=== PATIENT | female | born 1985 | race Caucasian/White ===

== ENCOUNTER → 2020-02-15 | Outpatient (CLI) | payer OTHER, SELFPAY ==
[2020-02-15 08:41] VITALS: BMI 31.2
[2020-02-15 14:18] LABS: Mucous, Urine 0 SEEN /hpf (<or=2+); Red Blood Cells-Urine 0 SEEN /hpf (0-5)
[2020-02-15 14:32] LABS: Color, Urine Yellow (Yellow); Glucose, Dipstick Normal (Normal); Ketone-Dipstick Negative (Negative); Leukocyte Esterase-Dipstick 500 /ul (Negative); Nitrite-Dipstick Negative (Negative); Occult Blood-Urine 10 /ul (Negative); Protein-Dipstick 15 mg/dl (Negative); Specific Gravity, Urine 1.015 (1.002-1.030); Urine Bilirubin Dipstick Negative (Negative); Urine Clarity Clear (Clear); Urine Urobilinogen Normal (Normal); Urine pH 6.5 (5.0 - 8.0)
[2020-02-15 14:49] LABS: Bacteria 2+ /hpf (None Seen); Squamous Epithelial Cells - UA 5-10 SEEN /hpf (5-10); White Blood Cells 5-10 SEEN /hpf (0-5)
== END | disposition home or self-care (01) ==
PROVIDERS: PCP Family Medicine; Visit Provider Physician Assistant Surgical
DX: R10.9 Unspecified abdominal pain (principal)
CPT/HCPCS: 81001; 87086; 87088

== ENCOUNTER 2024-10-22 11:51 | Emergency (ER) | payer OTHER, SELFPAY ==
[2024-10-22 11:52] VITALS: BP 114/80; PULSE 90; RESP 17; TEMP 36.8; O2SAT 98; BMI 29.5
--- NOTE | 2024-10-22 12:34 | EX.ED.DYSGE1 ---
HPI History of Present Illness Chief Complaint: Flank Pain Narrative Narrative: 39-year-old female past medical history of epilepsy presents with left flank pain radiating to the front that began at 1230 this morning, approximately 12 hours ago. She states it woke her from sleep. It was sudden onset. It is both sharp and stabbing and sometimes dull and achy. She states is in her left low back and radiates towards the front. She noticed that her urine was darker today, but not bloody. She describes to triage that she is having burning with urination as well. No fevers or chills but nausea, but no vomiting, no problems with bowel movements, no diarrhea. [facility] Medical History (Updated 10/22/24 @ 14:19 by Harshad Tapia MD) Seizures Hay fever Home Medications ?Medication ?Instructions ?Recorded ?Last Taken ?Type lamotrigine 200 mg tablet 300 - 400 mg PO BID 06/05/19 10/22/24 History levetiracetam 500 mg tablet 2,000 mg PO BID 06/05/19 10/22/24 History zonisamide 100 mg capsule 200 mg PO BID 06/05/19 10/22/24 History acetaminophen 500 mg capsule 500 mg PO Q6H PRN fever or pain 10/22/24 10/22/24 History methenamine-sodium salicylate 162 2 tab PO DAILY PRN PAIN RELIEF 10/22/24 10/22/24 History mg-162.5 mg tablet (AZO Urinary Tract Defense) Allergy/AdvReac Type Severity Reaction Status Date / Time No Known Allergies Allergy Verified 09/30/24 09:24 Surgical History History of appendectomy Social History Smoking Status: Never smoker alcohol intake: never substance use type: does not use ROS ROS ED ROS Narrative Review of systems positive for left flank pain, dark urine, positive dysuria. Positive nausea but no vomiting, no problems with bowel movements. No fevers or chills. No exacerbating or alleviating factors. Unsure of last menstrual period. EXAM Physical Exam Narrative Exam Narrative: Afebrile. Vital signs noted. Nontoxic-appearing. Cardiovascular examination feels regular rate and rhythm. Lungs are clear to auscultation bilaterally. Abdomen is soft, nontender, with positive bowel sounds. No guarding or rebound. Questionable CVA tenderness left. Const Vital Signs: 10/22/24 11:52 Temperature 98.3 F Temperature Source Oral Pulse Rate 90 Respiratory Rate 17 Blood Pressure 114/80 Blood Pressure Mean 91 Pulse Ox 98 Oxygen Delivery Method Room Air MDM MDM MDM Narrative Medical decision making narrative: Differential diagnosis includes but not limited to ureterolithiasis/ureteral colic versus pyelonephritis versus diverticulitis versus ectopic . History and physical does not support the latter 2 diagnoses. Comprehensive workup was pursued. In discussion with the patient and her , they prefer to wait until negative test for Toradol and declined the morphine/narcotic pain medication. I reviewed her laboratory work and she has slightly elevated white count of 11.7 which I think is nonspecific with hemoglobin normal at 13.9, hematocrit 42.1, platelet count 316. CO2 slightly low at 18.9 which I think is nonspecific, normal glucose of 97, anion gap of 12. Urine test is negative. Urine WBC count 5-10 with RBCs 25-50, there is 0 bacteria. 15 ketones. I do not feel antibiotics are indicated. I reviewed the radiology report of the CT of the abdomen and pelvis without contrast. There is a 3.6 mm stone in the bladder and hydronephrosis and hydroureter with mild stranding consistent with recently passed ureteral stone. Upon repeat examination at approximately 1420, she is resting comfortably, and states she is pain-free. She can take [id number] ibuprofen as needed as she states she is sensitive to medications. I feel she can be discharged to follow-up with urology as needed. Return instructions to the emergency department were reviewed. Disposition is discharged home in stable condition. History & Record Review Discussion w/independent historian: Patient and Family () Lab Data Attestation: I reviewed the patient's lab results. Labs: Laboratory Results - last 24 hr 10/22/24 12:16 WBC 11.7 H RBC 4.60 Hgb 13.9 Hct 42.1 MCV 91.5 MCH 30.2 MCHC 33.0 RDW Std Deviation 43.9 RDW Coeff of Krysta 13.0 Plt Count 316 MPV 8.8 Immature Gran % (Auto) 0.300 Neut % (Auto) 73.2 H Lymph % (Auto) 17.9 L [place] % (Auto) 7.8 Eos % (Auto) 0.4 Baso % (Auto) 0.4 Absolute Neuts (auto) 8.5 H Absolute Lymphs (auto) 2.09 Nucleated RBC % 0 Sodium 136 Potassium 3.8 Chloride 106 Carbon Dioxide 18.9 L Anion Gap 12 BUN 14 Creatinine 1.16 Estim Creat Clear Calc 55.67 Est GFR (MDRD) Non-Af 61 BUN/Creatinine Ratio 12.1 Glucose 97 Calcium 9.0 Urine Color Yellow Urine Clarity Cloudy Urine pH 6.0 Ur Specific [place] 1.010 Urine Protein 30 H Urine Glucose (UA) Normal Urine Ketones 15 H Urine Occult Blood 250 H Urine Nitrite Negative Urine Bilirubin Negative Urine Urobilinogen Normal Ur Leukocyte Esterase 100 H Urine RBC 25-50 SEEN Urine WBC 5-10 SEEN Ur Squamous Epith Cells 0-5 SEEN Urine Bacteria 0 SEEN Urine Mucus 0 SEEN Urine Test Negative Radiography Diagnostic Testing: Clinical Impression(s) from Imaging Studies Abdomen/Pelvis CT 10/22/24 13:18 IMPRESSION: Findings suggestive of recently passed left ureteral calculus. Left perinephric stranding and engorgement of the left kidney. Tiny nonobstructive intrarenal calculi. Reading Location: [facility]- Discharge Plan Triage Chief Complaint: Flank Pain ED Provider: Harshad Tapia Dx/Rx/DC Orders Clinical Impression: Ureteral stone with hydronephrosis, Left flank pain Instructions: ED Kidney Stone, Passed Prescriptions: No Action zonisamide 100 mg capsule 200 mg PO BID lamotrigine 200 mg tablet 300 - 400 mg PO BID Rx Instructions: PT TAKES 1.5 TAB IN MORNING AND 2 TABS IN EVENING levetiracetam 500 mg tablet 2,000 mg PO BID acetaminophen 500 mg capsule 500 mg PO Q6H PRN (Reason: fever or pain) AZO Urinary Tract Defense 162-162.5 mg tablet 2 tab PO DAILY PRN (Reason: PAIN RELIEF) Activity Restrictions/Additional Instructions: Return with fever, increased pain, new or worsening symptoms. Otherwise, take ibuprofen as directed for pain. Follow-up with Dr. Wen as needed. Print Language: Kiswahili Disposition Disposition: Home, Self Care
[2024-10-22 12:42] LABS: Bacteria 0 SEEN /hpf (None Seen); Mucous, Urine 0 SEEN /hpf (<or=2+)
[2024-10-22 12:44] LABS: Absolute Lymphocyte Count 2.09 X10^3/uL (0.83-4.51); Absolute Neutrophil Count 8.5 X10^3/uL (2.0-7.7); Basophil# 0.05 X10^3/uL; Basophil% 0.4 % (0-1); Color, Urine Yellow (Yellow); Eosinophil# 0.05 X10^3/uL; Eosinophils% 0.4 % (0-5); Glucose, Dipstick Normal (Normal); Hematocrit 42.1 % (37-47); Hemoglobin 13.9 g/dL (12.0-15.0); Ketone-Dipstick 15 mg/dl (Negative); Leukocyte Esterase-Dipstick 100 /ul (Negative); Lymphocyte # 2.09 X10^3/ul (0.83-4.51); Lymphocyte % 17.9 % (19-41); Mean Corpuscular Hgb 30.2 pg (27.0-32.0); Mean Corpuscular Volume 91.5 fL (81-99); Mean Platelet Vol. 8.8 fl (6.2-12.0); Monocyte# 0.91 X10^3/uL; Monocyte% 7.8 % (0-10); NRBC Flagged by Analyzer 0 % (0-5); Neutrophil # 8.54 X10^3/uL (2.7-7.7); Neutrophil % 73.2 % (47-70); Nitrite-Dipstick Negative (Negative); Occult Blood-Urine 250 /ul (Negative); Platelet Count 316 K/mm3 (150-450); Protein-Dipstick 30 mg/dl (Negative); RBC Distribution Width SD 43.9 fl (35.1-43.9); Urine Bilirubin Dipstick Negative (Negative); Urine Clarity Cloudy (Clear); Urine Urobilinogen Normal (Normal); White Blood Count 11.7 K/mm3 (4.4-11.0)
[2024-10-22 12:54] LABS: Red Blood Cells-Urine 25-50 SEEN /hpf (0-5); Squamous Epithelial Cells - UA 0-5 SEEN /hpf (5-10)
[2024-10-22 12:55] LABS: Internal QC Validated? YES +Cl - CLEAR BKGD; Pregnancy, Urine Negative Negative; White Blood Cells 5-10 SEEN /hpf (0-5)
[2024-10-22] MEDS: 0.9% Normal Saline (1000mL) 1,000 ML 250 ML IV (13:03)
[2024-10-22 13:08] LABS: Anion Gap 12 (5-15); BUN 14 mg/dL (4-19); BUN/Creat Ratio 12.1 RATIO (10-20); Carbon Dioxide 18.9 mmol/L (21.0-32.0); Chloride 106 mmol/L (98-108); Creatinine, Serum 1.16 mg/dL (0.70-1.20); EST Glomerular Filtration Rate 61 (>60); Estimated Creatinine Clearance 55.67 ml/min (50-250); Glucose 97 mg/dL (70-99); Potassium 3.8 mmol/L (3.3-5.1); Sodium Level 136 mmol/L (133-145)
--- NOTE | 2024-10-22 13:18 | CT_ITS ---
PROCEDURE: ABDOMEN/PELVIS WITHOUT CONT 10/22/2024 REASON FOR EXAM: KIDNEY STONE Left-sided abdominal pain with nausea and diarrhea. TECHNIQUE: ABDOMEN/PELVIS WITHOUT CONT Noncontrast technique limits evaluation of the abdominal and pelvic viscera. Coronal and Sagittal reconstruction series were provided. One or more dose reduction techniques were used (e.g., Automated exposure control, adjustment of the mA and/or kV according to patient size, use of iterative reconstruction technique). Dose report: CTDI L volume: 808 mGy. DLP: 410.37 ORAL CONTRAST TYPE: None. COMPARISON: None FINDINGS: Lung bases: Unremarkable. Liver: Normal size. No obvious mass. Gallbladder: Unremarkable Spleen: Normal size. Pancreas: Normal size. No surrounding inflammation. Adrenals: Unremarkable Kidneys: There is engorgement of the left kidney. Left perinephric stranding. Mild degree of left hydronephrosis and left hydroureter. There is a 3.6 mm calculus at the base of the bladder on the left side. This is suggestive of a recently passed left ureteral calculus. Tiny bilateral nonobstructive intrarenal calculi. Bladder: Calculus seen at the left base of the bladder. Reproductive Organs: Normal uterine size and contour. Ovaries are unremarkable. Bowel: Unremarkable Appendix: Status post appendectomy. Lymph nodes: Unremarkable. Vasculature: The abdominal aorta and IVC contours are normal. Noncontrast technique limits evaluation. Peritoneum / Retroperitoneum: Bones: Unremarkable CT/Abdomen/Pelvis without Cont IMPRESSION: Findings suggestive of recently passed left ureteral calculus. Left perinephri c stranding and engorgement of the left kidney. Tiny nonobstructive intrarenal calculi. Reading Location: [place] [id number]
[2024-10-22] MEDS: Ketorolac 15 MG/ML Vial IV (13:32)
[2024-10-22 14:45] VITALS: BP 105/73; PULSE 72; RESP 18; TEMP 36.9; O2SAT 99
== END 2024-10-22 14:49 | disposition home or self-care (01) ==
PROVIDERS: Emergency Provider Emergency Medicine; Visit Provider Emergency Medicine
DX: N13.2 Hydronephrosis with renal and ureteral calculous obstruction (principal); R10.9 Unspecified abdominal pain
CPT/HCPCS: 74176; 80048; 81001; 81025; 85025; 96361; 96374; 99283; A4216